=== PATIENT | female | born 1975 | race Caucasian/White ===

== ENCOUNTER → 2018-02-02 | Outpatient (CLI) | payer OTHER ==
[~2018-02-02] MED LIST: ALLERTEC PO; Adipex-P37.5 MG PO; BIRTH CONTROL; FISH1000 PO; METO50 PO
[2018-02-02 16:50] LABS: BASOPHILS ABSOLUTE AUTO 0.04 K/mm3 (0.00-0.23); BASOPHILS PERCENT AUTO 0 % (0-2); EOSINOPHILS PERCENT AUTO 1 % (0-6); Hematocrit 40.3 % (33.0-51.0); Hemoglobin 13.3 g/dL (11.5-16.0); IMMATURE GRAN ABSOLUTE AUTO 0.02 K/mm3 (0.00-0.10); IMMATURE GRAN PERCENT AUTO 0 % (0-1); LYMPHOCYTES ABSOLUTE AUTO 2.21 K/mm3 (0.84-5.20); LYMPHOCYTES PERCENT AUTO 25 % (21-46); MONOCYTES ABSOLUTE AUTO 0.59 K/mm3 (0.16-1.47); MONOCYTES PERCENT AUTO 7 % (4-13); Mean Corpuscular HGB 27.7 pg (26.0-34.0); Mean Corpuscular Volume 84 fL (80-100); Mean Platelet Volume 10.9 fL (9.1-12.4); NEUTROPHILS ABSOLUTE AUTO 5.93 K/mm3 (1.96-9.15); NEUTROPHILS PERCENT AUTO 67 % (41-73); Platelet Count 363 K/mm3 (150-400); RDW Coefficient Variation 13.7 % (11.7-14.2); RDW Standard Deviation 41.4 fL (35.1-46.3); Red Blood Cell Count 4.81 M/mm3 (3.80-5.20); White Blood Cell Count 8.89 K/mm3 (4.00-11.30)
[2018-02-02 17:06] LABS: Anion Gap 8 mmol/L (6-16); Blood Urea Nitrogen 17 mg/dL (8-24); Bun/Creatinine Ratio 18.9 (12.0-20.0); CO2, Blood 29 mmol/L (21-32); Calcium, Blood 9.4 mg/dL (8.5-10.1); Chloride, Blood 101 mmol/L (98-108); Glomerular Filtration Rate >60 (60-); Glucose, Blood 96 mg/dL (70-99); Sodium, Blood 138 mmol/L (136-145); Thyroid Stimulating Hormone 1.517 uIU/mL (0.360-4.800)
== END | disposition home or self-care (01) ==
LOC: LAB SHORT 16:44 → LAB EV 16:44
PROVIDERS: Family Medicine
DX: R00.2 Palpitations (principal)
CPT/HCPCS: 80048; 84443; 85025

== ENCOUNTER → 2018-02-11 | Outpatient (CLI) | payer OTHER | LOC: LAB 14:20 → LAB SHORT 14:20 | DX: N39.0 Urinary tract infection, site not specified (principal) | CPT/HCPCS: 87086 ==

== ENCOUNTER → 2019-03-13 | Outpatient (CLI) | payer OTHER ==
[2019-03-17 14:06] LABS: HPV 16 Negative (Negative); HPV 18 Negative (Negative); HPV OTHER HR TYPES Negative (Negative)
== END | disposition home or self-care (01) ==
LOC: LAB SHORT 18:55 → LAB 18:55
PROVIDERS: Nurse Practitioner Women's Health
DX: Z12.4 Encounter for screening for malignant neoplasm of cervix (principal)
CPT/HCPCS: 87624; G0123

== ENCOUNTER → 2020-05-26 | Outpatient (CLI) | payer OTHER | END | disposition home or self-care (01) | LOC: PLD 10:47 | DX: R30.9 Painful micturition, unspecified (principal) | CPT/HCPCS: 87086 ==

== ENCOUNTER → 2020-06-02 | Outpatient (CLI) | payer OTHER | LOC: LAB 15:52 | DX: R31.9 Hematuria, unspecified (principal) | CPT/HCPCS: 87086 ==

== ENCOUNTER 2021-03-15 23:00 | Emergency (ER) | payer OTHER ==
[~2021-03-15] VITALS: Ht 180.3 cm; Wt 101.6 kg
== END 2021-03-16 00:52 | disposition home or self-care (01) ==
LOC: ER 23:00
DX: I82.812 Embolism and thrombosis of superficial veins of left lower extremity (principal); I48.91 Unspecified atrial fibrillation
CPT/HCPCS: 93971; 99283-25; A9270

== ENCOUNTER → 2021-07-17 | Outpatient (CLI) | payer OTHER | END | disposition home or self-care (01) | LOC: LAB SHORT 12:28 | DX: R10.9 Unspecified abdominal pain (principal) | CPT/HCPCS: 87086 ==

== ENCOUNTER → 2021-08-11 | Outpatient (CLI) | payer OTHER | END | disposition home or self-care (01) | LOC: LAB SHORT 13:30 → LAB 13:30 | DX: N39.9 Disorder of urinary system, unspecified (principal) | CPT/HCPCS: 87077; 87086; 87186 ==

== ENCOUNTER → 2023-04-05 | Outpatient (CLI) | payer OTHER ==
[~2023-04-05] MED LIST changes: +MONT10T PO
== END | disposition home or self-care (01) ==
LOC: LAB SHORT 13:00 → LAB 13:00
DX: N39.0 Urinary tract infection, site not specified (principal)
CPT/HCPCS: 87086

== ENCOUNTER → 2024-03-14 | Outpatient (CLI) | payer OTHER | LOC: LAB SHORT 15:58 → LAB 15:58 | DX: N39.0 Urinary tract infection, site not specified (principal) | CPT/HCPCS: 87086 ==

== ENCOUNTER 2024-07-19 19:05 | Emergency (ER) | payer OTHER ==
[~2024-07-19] VITALS: Ht 180.3 cm; Wt 113.4 kg
[2024-07-19 19:49] LABS: BASOPHILS ABSOLUTE AUTO 0.04 K/mm3 (0.00-0.23); BASOPHILS PERCENT AUTO 1 % (0-2); EOSINOPHILS PERCENT AUTO 2 % (0-6); Hemoglobin 13.2 g/dL (11.5-16.0); IMMATURE GRAN ABSOLUTE AUTO 0.02 K/mm3 (0.00-0.10); IMMATURE GRAN PERCENT AUTO 0 % (0-1); LYMPHOCYTES ABSOLUTE AUTO 2.33 K/mm3 (0.84-5.20); LYMPHOCYTES PERCENT AUTO 34 % (21-46); MONOCYTES ABSOLUTE AUTO 0.69 K/mm3 (0.16-1.47); MONOCYTES PERCENT AUTO 10 % (4-13); Mean Corpuscular HGB 31.1 pg (26.0-34.0); Mean Corpuscular Volume 94 fL (80-100); Mean Platelet Volume 10.5 fL (9.1-12.4); NEUTROPHILS ABSOLUTE AUTO 3.65 K/mm3 (1.96-9.15); NEUTROPHILS PERCENT AUTO 53 % (41-73); Platelet Count 236 K/mm3 (150-400); RDW Coefficient Variation 12.7 % (11.7-14.2); RDW Standard Deviation 43.9 fL (35.1-46.3); Red Blood Cell Count 4.24 M/mm3 (3.80-5.20); White Blood Cell Count 6.83 K/mm3 (4.00-11.30)
[2024-07-19] MEDS ORDERED: Mag Hydrox/AL Hydrox/Simeth 30 ML UDC PO ONE (21:00)
[2024-07-19] MEDS ORDERED: Lidocaine 2% Viscous Soln 15 ML UDC PO ONE (21:00)
[2024-07-19] MEDS ORDERED: Atropine/Scopalam/Hyoscam/PB 5 ML UDC PO ONE (21:00)
[2024-07-19 22:32] LABS: Albumin, Blood 3.3 g/dL (3.4-5.0); Albumin/Globulin Ratio 0.9 (0.8-1.8); Bilirubin, Total 0.5 mg/dL (0.1-1.0); Bun/Creatinine Ratio 21.6 (12.0-20.0); Calcium, Blood 8.6 mg/dL (8.5-10.1); Creatinine, Blood 0.74 mg/dL (0.40-1.00); Globulin, Blood 3.8 g/dL (2.2-4.0); Potassium, Blood 3.8 mmol/L (3.5-5.5); Total Protein, Blood 7.1 g/dL (6.4-8.2)
[2024-07-19] MEDS ORDERED: FAMO20 PO (22:52)
[2024-07-19] MEDS ORDERED: SUCR1 PO (22:52)
[2024-07-19 23:03] VITALS: BP 120/109
== END 2024-07-19 23:04 | disposition home or self-care (01) ==
LOC: ER 19:05
PROVIDERS: Physician Assistant; Student in an Organized Health Care Education/Training Program
DX: K21.9 Gastro-esophageal reflux disease without esophagitis (principal); R05.9 Cough, unspecified; I48.91 Unspecified atrial fibrillation; Z79.899 Other long term (current) drug therapy
CPT/HCPCS: 71046; 80053; 85025; 93005; 93010; 99284-25; A9270

== ENCOUNTER → 2025-03-05 | Outpatient (CLI) | payer OTHER ==
[~2025-03-05] MED LIST changes: +FAMO20 PO; +SUCR1 PO
[2025-03-05 14:27] LABS: BASOPHILS ABSOLUTE AUTO 0.04 K/mm3 (0.00-0.23); BASOPHILS PERCENT AUTO 1 % (0-2); EOSINOPHILS ABSOLUTE AUTO 0.08 K/mm3 (0.00-0.68); EOSINOPHILS PERCENT AUTO 1 % (0-6); Hematocrit 40.0 % (33.0-51.0); Hemoglobin 13.6 g/dL (11.5-16.0); IMMATURE GRAN ABSOLUTE AUTO 0.03 K/mm3 (0.00-0.10); IMMATURE GRAN PERCENT AUTO 0 % (0-1); LYMPHOCYTES ABSOLUTE AUTO 2.45 K/mm3 (0.84-5.20); LYMPHOCYTES PERCENT AUTO 29 % (21-46); MONOCYTES ABSOLUTE AUTO 0.57 K/mm3 (0.16-1.47); MONOCYTES PERCENT AUTO 7 % (4-13); Mean Corpuscular HGB Conc 34.0 g/dL (31.5-36.5); Mean Corpuscular Volume 93 fL (80-100); NEUTROPHILS ABSOLUTE AUTO 5.40 K/mm3 (1.96-9.15); NEUTROPHILS PERCENT AUTO 63 % (41-73); NRBC ABSOLUTE 0.00 K/mm3 (0.00-0.02); NRBC Auto 0.0 /100 WBC (0.0-0.2); Platelet Count 310 K/mm3 (150-400); RDW Coefficient Variation 12.3 % (11.7-14.2); RDW Standard Deviation 42.2 fL (35.1-46.3)
[2025-03-05 14:36] LABS: Alanine Aminotransfer (ALT/SGP 25.0 U/L (12-78); Albumin, Blood 3.7 g/dL (3.4-5.0); Albumin/Globulin Ratio 0.9 (0.8-1.8); Anion Gap 12.0 mmol/L (3-11); Aspartate Aminotrans (AST/SGOT 16.0 U/L (12-37); Bilirubin, Total 0.5 mg/dL (0.1-1.0); Blood Urea Nitrogen 20.0 mg/dL (8-24); CO2, Blood 27.0 mmol/L (21-32); Calcium, Blood 9.2 mg/dL (8.5-10.1); Chloride, Blood 104.0 mmol/L (98-108); Creatinine, Blood 0.83 mg/dL (0.40-1.00); Globulin, Blood 4.0 g/dL (2.2-4.0); Glucose, Blood 80.0 mg/dL (70-99); Potassium, Blood 4.1 mmol/L (3.5-5.5); Sodium, Blood 139.0 mmol/L (136-145); Total Protein, Blood 7.7 g/dL (6.4-8.2)
== END ==
LOC: LAB SHORT 14:21 → LAB 14:21
PROVIDERS: Emergency Medicine
DX: R10.11 Right upper quadrant pain (principal)
CPT/HCPCS: 80053; 83690; 85025

== ENCOUNTER 2025-04-07 09:55 | Emergency (ER) | payer OTHER ==
[~2025-04-07] VITALS: Ht 180.3 cm; Wt 117.9 kg
[2025-04-07 10:40] LABS: BASOPHILS ABSOLUTE AUTO 0.04 K/mm3 (0.00-0.23); BASOPHILS PERCENT AUTO 0 % (0-2); EOSINOPHILS ABSOLUTE AUTO 0.07 K/mm3 (0.00-0.68); EOSINOPHILS PERCENT AUTO 1 % (0-6); Hematocrit 40.0 % (33.0-51.0); Hemoglobin 13.6 g/dL (11.5-16.0); IMMATURE GRAN ABSOLUTE AUTO 0.02 K/mm3 (0.00-0.10); IMMATURE GRAN PERCENT AUTO 0 % (0-1); LYMPHOCYTES ABSOLUTE AUTO 2.44 K/mm3 (0.84-5.20); LYMPHOCYTES PERCENT AUTO 27 % (21-46); MONOCYTES ABSOLUTE AUTO 0.59 K/mm3 (0.16-1.47); MONOCYTES PERCENT AUTO 6 % (4-13); Mean Corpuscular HGB Conc 34.0 g/dL (31.5-36.5); Mean Corpuscular Volume 89 fL (80-100); NEUTROPHILS ABSOLUTE AUTO 6.05 K/mm3 (1.96-9.15); NEUTROPHILS PERCENT AUTO 66 % (41-73); NRBC ABSOLUTE 0.00 K/mm3 (0.00-0.02); NRBC Auto 0.0 /100 WBC (0.0-0.2); Platelet Count 278 K/mm3 (150-400); RDW Coefficient Variation 12.0 % (11.7-14.2); RDW Standard Deviation 39.2 fL (35.1-46.3)
[2025-04-07 11:08] LABS: Alanine Aminotransfer (ALT/SGP 25.0 U/L (12-78); Albumin, Blood 3.8 g/dL (3.4-5.0); Albumin/Globulin Ratio 1.1 (0.8-1.8); Anion Gap 9.0 mmol/L (3-11); Aspartate Aminotrans (AST/SGOT 23.0 U/L (12-37); Bilirubin, Total 0.7 mg/dL (0.1-1.0); Blood Urea Nitrogen 20.0 mg/dL (8-24); CO2, Blood 25.0 mmol/L (21-32); Calcium, Blood 9.4 mg/dL (8.5-10.1); Chloride, Blood 105.0 mmol/L (98-108); Creatinine, Blood 0.83 mg/dL (0.40-1.00); Globulin, Blood 3.6 g/dL (2.2-4.0); Glucose, Blood 69.0 mg/dL (70-99); Potassium, Blood 3.5 mmol/L (3.5-5.5); Sodium, Blood 135.0 mmol/L (136-145); Thyroid Stimulating Hormone 0.696 uIU/mL (0.360-4.800); Total Protein, Blood 7.4 g/dL (6.4-8.2)
[2025-04-07 12:45] VITALS: BP 122/74
== END 2025-04-07 12:47 | disposition home or self-care (01) ==
LOC: ER 09:55
PROVIDERS: Emergency Medicine
DX: R00.2 Palpitations (principal); Z79.899 Other long term (current) drug therapy
CPT/HCPCS: 80053; 84443; 85025; 93005; 93010; 93246; 99285-25

== ENCOUNTER 2025-05-22 09:36 | Emergency (ER) | payer OTHER ==
[~2025-05-22] VITALS: Ht 180.3 cm; Wt 108.9 kg
[2025-05-22] MEDS ORDERED: NS 1,000 ML IV SCH (10:25)
[2025-05-22 10:59] LABS: BASOPHILS ABSOLUTE AUTO 0.04 K/mm3 (0.00-0.23); BASOPHILS PERCENT AUTO 0 % (0-2); EOSINOPHILS ABSOLUTE AUTO 0.09 K/mm3 (0.00-0.68); EOSINOPHILS PERCENT AUTO 1 % (0-6); Hematocrit 39.6 % (33.0-51.0); Hemoglobin 13.5 g/dL (11.5-16.0); IMMATURE GRAN ABSOLUTE AUTO 0.03 K/mm3 (0.00-0.10); IMMATURE GRAN PERCENT AUTO 0 % (0-1); LYMPHOCYTES ABSOLUTE AUTO 1.41 K/mm3 (0.84-5.20); LYMPHOCYTES PERCENT AUTO 14 % (21-46); MONOCYTES ABSOLUTE AUTO 0.52 K/mm3 (0.16-1.47); MONOCYTES PERCENT AUTO 5 % (4-13); Mean Corpuscular HGB Conc 34.1 g/dL (31.5-36.5); Mean Corpuscular Volume 93 fL (80-100); NEUTROPHILS ABSOLUTE AUTO 7.92 K/mm3 (1.96-9.15); NEUTROPHILS PERCENT AUTO 79 % (41-73); NRBC ABSOLUTE 0.00 K/mm3 (0.00-0.02); NRBC Auto 0.0 /100 WBC (0.0-0.2); Platelet Count 239 K/mm3 (150-400); RDW Coefficient Variation 12.3 % (11.7-14.2); RDW Standard Deviation 41.2 fL (35.1-46.3)
[2025-05-22 11:32] LABS: Alanine Aminotransfer (ALT/SGP 25.0 U/L (12-78); Albumin, Blood 3.6 g/dL (3.4-5.0); Albumin/Globulin Ratio 1.1 (0.8-1.8); Anion Gap 7.0 mmol/L (3-11); Aspartate Aminotrans (AST/SGOT 22.0 U/L (12-37); Bilirubin, Total 0.6 mg/dL (0.1-1.0); Blood Urea Nitrogen 11.0 mg/dL (8-24); CO2, Blood 27.0 mmol/L (21-32); Calcium, Blood 8.8 mg/dL (8.5-10.1); Chloride, Blood 107.0 mmol/L (98-108); Creatinine, Blood 0.8 mg/dL (0.40-1.00); Globulin, Blood 3.4 g/dL (2.2-4.0); Glucose, Blood 85.0 mg/dL (70-99); Potassium, Blood 3.5 mmol/L (3.5-5.5); Sodium, Blood 137.0 mmol/L (136-145); Total Protein, Blood 7.0 g/dL (6.4-8.2)
[2025-05-22 13:02] VITALS: BP 127/75
== END 2025-05-22 13:03 | disposition home or self-care (01) ==
LOC: ER 09:36
DX: N92.0 Excessive and frequent menstruation with regular cycle (principal); N32.89 Other specified disorders of bladder
CPT/HCPCS: 80053; 85025; 86850; 86900; 86901; 93005; 93010; 99284-25; J7030